=== PATIENT | male | born 1985 | race Caucasian/White ===

== ENCOUNTER 2018-09-13 19:28 | Emergency (ER) | payer OTHER ==
[~2018-09-13] VITALS: Ht 185.4 cm; Wt 95.0 kg
[2018-09-13 19:37] VITALS: BP 137/66
== END 2018-09-13 21:07 | disposition home or self-care (01) ==
LOC: ER 19:28
DX: H61.23 Impacted cerumen, bilateral (principal)
CPT/HCPCS: 69210; 99284

== ENCOUNTER 2019-07-15 18:55 | Emergency (ER) | payer OTHER ==
[~2019-07-15] VITALS: Ht 185.4 cm; Wt 100.0 kg
[2019-07-15 18:56] VITALS: BP 123/58
== END 2019-07-15 19:31 | disposition home or self-care (01) ==
LOC: ER 18:55
DX: M79.671 Pain in right foot (principal); X58.XXXA Exposure to other specified factors, initial encounter; Y93.01 Activity, walking, marching and hiking; Y92.29 Other specified public building as the place of occurrence of the external cause; Y99.8 Other external cause status
CPT/HCPCS: 73630; 99283

== ENCOUNTER 2020-02-02 09:05 | Emergency (ER) | payer OTHER ==
[~2020-02-02] VITALS: Ht 185.4 cm; Wt 100.0 kg
[2020-02-02 09:27] VITALS: BP 141/84
[2020-02-02] MEDS ORDERED: PRED10TA23 PO (10:41)
[2020-02-02] MEDS ORDERED: HYDR28CR14 TOP (10:41)
== END 2020-02-02 11:13 | disposition home or self-care (01) ==
LOC: ER 09:05
DX: L23.7 Allergic contact dermatitis due to plants, except food (principal); Z79.899 Other long term (current) drug therapy
CPT/HCPCS: 99283

== ENCOUNTER 2020-11-03 07:18 | Emergency (ER) | payer OTHER ==
[~2020-11-03] VITALS: Ht 185.4 cm; Wt 96.4 kg
[~2020-11-03 07:18] MED LIST: HYDR28CR14 TOP
[2020-11-03 07:21] VITALS: BP 137/105
== END 2020-11-03 07:45 | disposition home or self-care (01) ==
LOC: ER 07:19
DX: B34.9 Viral infection, unspecified (principal); Z20.828 Contact with and (suspected) exposure to other viral communicable diseases; Z79.899 Other long term (current) drug therapy
CPT/HCPCS: 36415; 87635; 99283